=== PATIENT | female | born 1985 | race Asian ===

== ENCOUNTER 2022-02-20 00:19 | Emergency (ER) | payer MEDICARE, OTHER ==
[~2022-02-20] VITALS: Ht 157.5 cm; Wt 59.9 kg
[2022-02-20] MEDS ORDERED: IV NORMAL SALINE 1000 ML BAG IV ONE ×3 (00:30→09:00)
[2022-02-20 01:09] LABS: HEMATOCRIT 31.8 % (31.2-41.9); MEAN CORPUSCULAR HEMOGLOBIN 30.3 uug (24.7-32.8); MEAN CORPUSCULAR VOLUME 89.3 fL (75.5-95.3); PLATELET COUNT (AUTO) 244 K/uL (179-408)
[2022-02-20 01:33] LABS: THYROID STIMULATING HORMONE 0.441 mIU/mL (0.358-3.740)
[2022-02-20 01:35] LABS: ACETAMINOPHEN 4.3 ug/mL (10-30); ALANINE AMINOTRANSFERASE 98 U/L (14-59); ASPARTATE AMINOTRANSFERASE 52 U/L (15-37); BILIRUBIN,DIRECT 0.1 mg/dL (0.0-0.2); BILIRUBIN,TOTAL 0.2 mg/dL (0.2-1.0); CARBON DIOXIDE 25 mmol/L (21-32); CHLORIDE 97 mmol/L (98-107); GLUCOSE 165 mg/dL (74-106); POTASSIUM 3.1 mmol/L (3.5-5.1); TOTAL PROTEIN, SERUM 6.9 g/dL (6.4-8.2); UREA NITROGEN, BLOOD 14 mg/dL (7-18)
[2022-02-20 01:37] LABS: ETHANOL < 3 MG/DL (0-0)
[2022-02-20 02:15] LABS: ALKALINE PHOSPHATASE 53 U/L (50-136)
[2022-02-20] MEDS ORDERED: POTASSIUM CHLORIDE 20 MEQ TAB.PRT.SR PO ONE (02:30)
--- NOTE | 2022-02-20 02:34 | NUR ---
Received call back from Warehouse Handler, Midline nurse coming at [phone].
[2022-02-20] MEDS ORDERED: POTASSIUM CHLORIDE 20 MEQ TAB.PRT.SR ONE (03:38)
[2022-02-20] MEDS ORDERED: ACETAMINOPHEN ES 500 MG TABLET ONE (07:03)
[2022-02-20] MEDS ORDERED: ACETAMINOPHEN ES 500 MG TABLET PO ONE (07:15)
--- NOTE | 2022-02-20 07:16 | NUR ---
unable to obtain iv access. Midline nurse will come.
--- NOTE | 2022-02-20 08:00 | NUR ---
RN Nguyễn is attempting IV line insertion@this time. Midline nurse was called by nursing mapping supervisor Karlee.
--- NOTE | 2022-02-20 08:13 | NUR ---
Midline/PICC is here to start patient's IV line.
--- NOTE | 2022-02-20 08:13 | NUR ---
Alonso rosario in [facility] - 02/20/22 at 0834 by SUDHA Midline/PICC is here for start patient's IV line.
--- NOTE | 2022-02-20 08:30 | NUR ---
IV bolus infusing well, pending urine specimen@this time. Patient is AOx4, calm & breathing easily, denies any discomfort, skin is warm & dry.
--- NOTE | 2022-02-20 09:45 | NUR ---
Patient c/o headaches notified.
[2022-02-20] MEDS ORDERED: IBUPROFEN 800 MG TABLET PO ONE (10:00)
[2022-02-20] MEDS ORDERED: IBUPROFEN 800 MG TABLET ONE (10:02)
[2022-02-20 10:03] LABS: *BILIRUBIN,URIN NEGATIVE (NEGATIVE); *BLOOD, URINE NEGATIVE (NEGATIVE); *CLARITY,URINE CLEAR (CLEAR); *COLOR,URINE YELLOW (YELLOW); *KETONES,URINE NEGATIVE (NEGATIVE); *UROBILINOGEN,URINE 0.2 E.U./dl (NORMAL); LEUKOCYTE ESTERASE ,URINE 1+ (NEGATIVE); NITRITE, URINE NEGATIVE (NEGATIVE); UGLUCOSE NEGATIVE (NEGATIVE)
[2022-02-20 10:12] LABS: *AMPHETAMINE, URINE NEGATIVE (NEGATIVE); *CANNABINOID, URINE NEGATIVE (NEGATIVE); *COCCAINE, URINE NEGATIVE (NEGATIVE); *OPIATE, URINE NEGATIVE (NEGATIVE); *PHENCYCLIDINE SCREEN,URINE NEGATIVE (NEGATIVE)
--- NOTE | 2022-02-20 11:11 | NUR ---
IV removed. Catheter intact and site benign. Pressure and 4x4 gauze applied to site. No bleeding noted. Patient discharged to home in stable condition with brisk steady gait. Written and verbal after care instructions given. Patient verbalized understanding and compliance of instructions. Stressed follow up with primary doctor or return to ER for worsening s/s. Patient left using [employer] service (arranged by her detox center).
[2022-02-20 13:51] LABS: BACTERIA,URINE FEW /HPF (NONE SEEN); RBC,URINE NONE SEEN /HPF (0-3); SQUAMOUS EPITHELIAL CELL,UR FEW /HPF (NONE SEEN)
== END 2022-02-20 11:11 | disposition home or self-care (01) ==
LOC: ER 00:57
DX: I95.9 Hypotension, unspecified (principal); F11.20 Opioid dependence, uncomplicated; Z20.822 Contact with and (suspected) exposure to COVID-19; R91.8 Other nonspecific abnormal finding of lung field; R00.0 Tachycardia, unspecified
CPT/HCPCS: 36410; 36415; 71045; 80048; 80076; 80299; 80307; 80320; 81001; 84443; 84484 ×2; 84702; 85025; 87086; 87426; 93005; 96360; 99285; J7040 ×2; A4663; A9150; G0480